=== PATIENT | male | born 1930 | race Caucasian/White ===

== ENCOUNTER 2018-08-15 09:42 | Outpatient (CLI) | payer MEDICARE ==
[2018-08-15] MEDS ORDERED: REGADENOSON 0.4 MG/5 ML DISP.SYRIN IVP ONE (11:00)
== END 2018-08-15 23:59 | disposition home or self-care (01) ==
LOC: NM 09:42
PROVIDERS: ATTEND Internal Medicine Cardiovascular Disease
DX: R07.9 Chest pain, unspecified (principal); E11.9 Type 2 diabetes mellitus without complications; I10 Essential (primary) hypertension
CPT/HCPCS: 78452; A9502; J2785